=== PATIENT | male | born 1960 | race Caucasian/White ===

== ENCOUNTER 2020-06-12 10:28 | Outpatient (CLI) | payer BC ==
--- NOTE | 2020-06-12 12:21 | RAD ---
LUMBAR SPINE 3 VIEWS: Date: 06/12/2020 HISTORY: Left leg numbness for 6 months. FINDINGS: Disc osteophytosis and disc narrowing at L4-L5 and L5-S1. No abnormal translation between flexion and extension. IMPRESSION: Disc osteophytosis with disc narrowing at L4-L5 and L5-S1, without abnormal translation between flexi on and extension. POS: RRE
--- NOTE | 2020-06-12 13:10 | MRI ---
LUMBAR SPINE MRI WITHOUT IV CONTRAST: HISTORY: Lumbar radiculopathy, left leg numbness for 6 months. COMPARISON: 06/27/2009. FINDINGS: Conus medullaris region is unremarkable. Generalized disk desiccation changes and ligament and facet hypertrophic changes. Several bony hemangiomas. T12-L1 disk: Unremarkable. L1-L2 disk: Mild bilateral recess stenosis. L2-L3 disk: Mild bilateral recess stenosis. Small cyst in the left ligamentum flavum adjacent to th e facet joint. L3-L4 disk: Very severe canal, lateral recess, and moderate bilateral foraminal stenosis. This is a considerable change when compared to the prior study. L4-L5 disk: Diffuse disk-osteophytosis with very severe central canal and lateral recess and moderat e bilateral foraminal stenosis with associated annular fissure. L5-S1 disk: Mild central canal and lateral recess stenosis and foraminal stenosis with associated an nular fissure. IMPRESSION: Multilevel variable severity canal, lateral recess, and foraminal stenosis, most marked at L3-L4 and L4-L5 with very considerable worsening of the stenosis at L3-L4 from prior study. POS: RRE
== END 2020-06-12 10:29 | disposition home or self-care (01) ==
LOC: TBSIIMAG 10:28
PROVIDERS: ATTEND Neurological Surgery
DX: M54.16 Radiculopathy, lumbar region (principal); M54.30 Sciatica, unspecified side; M48.061 Spinal stenosis, lumbar region without neurogenic claudication
CPT/HCPCS: 72100; 72148

== ENCOUNTER 2020-10-09 06:55 | Outpatient (CLI) | payer BC ==
[2020-10-09 14:27] LABS: Hemoglobin 14.2 g/dL (14.0-18.0); Mean Corpuscular HGB CONC 34.1 G/DL (32.0-36.0); Mean Corpuscular Hemoglobin 31.1 PG (27.0-33.0); Mean Corpuscular Volume 91.2 fl (80.0-100.0); Platelet Count 254 10x3/uL (130-400); RBC Distribution Width 12.7 % (11.5-14.5); Red Blood Cell (RBC) Count 4.56 10x6/uL (4.40-5.80); White Blood Cell (WBC) Count 6.5 10x3/uL (4.5-11.0)
[2020-10-09 14:53] LABS: PTT 28.2 sec (22.0-33.0); Prothrombin Time 10.3 sec (9.5-12.1)
[2020-10-10 05:28] LABS: SARS-CoV-2 PCR by NAA Not Detected (NotDetected)
== END 2020-10-09 06:56 | disposition home or self-care (01) ==
LOC: LABBT 06:55
PROVIDERS: ATTEND Neurological Surgery
DX: Z01.812 Encounter for preprocedural laboratory examination (principal); Z20.822 Contact with and (suspected) exposure to COVID-19; M48.062 Spinal stenosis, lumbar region with neurogenic claudication
CPT/HCPCS: 85027; 85610; 85730; 87635; U0003; U0005

== ENCOUNTER 2020-10-12 05:41 | Day surgery (SDC) | payer BC ==
[2020-10-09 14:11] VITALS: BMI 27.1
--- NOTE | 2020-10-10 18:03 | HP ---
REASON FOR H AND P: Surgery on 10/12/2020, case number is [id number]. HISTORY OF PRESENT ILLNESS: Mr. Macias is a 60 yo male with lower back and bilateral left greater than right pain for the past 2 to 3 years. 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 Last year, his left leg pain has become worse compared to his right leg. Pain and paresthesias radiate into his bilateral (L>R), right gluteal muscle and posterior thigh, not passing his knee. He could walk about 200 to 300 yards before he has to sit down to alleviate some of his pain. He denies bladder or bowel dysfunction. REVIEW OF SYSTEMS: CONSTITUTIONAL: Denies fever or chills. ENT: Denies change in vision or hearing. CARDIAC: Denies chest pain, shortness of breath, or diaphoresis. PULMONARY: Denies shortness of breath, cough, or hemoptysis. GI: Denies fecal incontinence, abdominal pain, nausea, vomiting, diarrhea, or change in stool formation and consistency. : Denies urinary incontinence, trouble with urination, frequency of urination, bloody urine. SKIN: Denies skin rash, bruising, bleeding, skin masses. MUSCULOSKELETAL: As per history of present illness. NEUROLOGIC: As per history of present illness. PSYCHOLOGIC: Denies anxiety, depression, or behavior changes. MEDICAL HISTORY: None. SURGICAL HISTORY: Denies past surgical history. HOSPITALIZATION: Denies past hospitalizations. FAMILY HISTORY: Father , diagnosed with diabetes, hypertension, heart disease, and stroke. Mother , diagnosed none. Children alive. SOCIAL HISTORY: Former smoker. Denies alcohol or illicit drug use. MEDICATIONS: None. ALLERGIES: NO KNOWN DRUG ALLERGIES. PHYSICAL EXAMINATION: VITAL SIGNS: Weight 205, height 6 feet 0 inches, BMI 27.80. HEENT: Pupils are equal. Extraocular movements are intact. NECK: Soft and supple. No masses are noted. Range of motion is intact and nonpainful. NEUROLOGIC: Awake, alert, oriented x3. Memory, attention, and fund of knowledge are normal. Cranial nerves are grossly intact. Gait and station are normal. Motor exam, there is normal strength in the iliopsoas, quadriceps, hamstrings, anterior tib, EHL, gastrocnemius, and toe flexors. Sensory exam, there is no dermatomal sensory loss. IMAGING STUDIES: MRI of L-spine; L3-L4 and L4-L5 severe stenosis with left lateral recess L5-S1. X-rays of the L-spine, flexion and extension stable. ASSESSMENT: Lumbar stenosis with neurogenic claudication. PLAN: 1. Laminectomy of L3 through S1. 2. Preoperative labs; CBC, PT, PTT, and INR, COVID-19 testing. 3. Anesthesia clearance. INFORMED CONSENT: We discussed the indications, risks, benefits, alternatives, and expected results from surgery. The risks discussed included, but were not limited to, bleeding, infection, CSF leak, nerve damage, weakness, incontinence, cauda equina injury, arachnoiditis, paralysis, ventilator dependency, wheelchair dependency, loss of vision, cardiopulmonary complications of anesthesia, or . Long-term complications discussed included, but were not limited to spinal instability and future surgery. He understands the risks and is willing to proceed. Job ID: [id number] MTDD
[2020-10-12] MEDS ORDERED: EPINEPHrine 1 MG/ML AMP ONE (05:56)
[2020-10-12] MEDS ORDERED: Thrombin 5000 UNITS/5 ML VIAL ONE (05:56)
[2020-10-12] MEDS ORDERED: Bupivacaine PF 0.5% 30 ML VIAL ONE (05:56)
[2020-10-12] MEDS ORDERED: SUGAMMADEX SODIUM 500 MG/5 ML VIAL ONE (06:27)
[2020-10-12] MEDS ORDERED: Fentanyl 100 MCG/2 ML VIAL ONE ×3 (06:27→10:46)
[2020-10-12] MEDS ORDERED: Famotidine/PF 20 mg/2ml Vial ONE (06:27)
[2020-10-12] MEDS ORDERED: Midazolam HCl 2 mg/2 ml Vial ONE (06:53)
[2020-10-12] MEDS ORDERED: ePHEDrine 50 MG/ML VIAL ONE (10:00)
[2020-10-12] MEDS ORDERED: Metoclopramide HCl 10 MG/2 ML VIAL ONE (10:00)
[2020-10-12] MEDS ORDERED: PROPOFOL 200 MG/20 ML VIAL ONE (10:00)
[2020-10-12] MEDS ORDERED: PHENYLEPHRINE-NS 100 MCG/ML 10 ML SYRINGE ONE (10:00)
[2020-10-12] MEDS ORDERED: Ondansetron PF 4 MG/2 ML Vial ONE (10:00)
[2020-10-12] MEDS ORDERED: Lidocaine 1% PF 5 ML VIAL ONE (10:00)
[2020-10-12] MEDS ORDERED: Dexamethasone 20 MG/5 ML VIAL ONE (10:00)
[2020-10-12] MEDS ORDERED: Ketorolac Tromethamine 30 MG/ML VIAL ONE (10:00)
[2020-10-12] MEDS ORDERED: Rocuronium Bromide 10 MG/ML (10ML VIAL) ONE (10:00)
[2020-10-12] MEDS ORDERED: Tamsulosin HCl 0.4 MG CAP ONE (10:50)
--- NOTE | 2020-10-12 11:20 | OP ---
DATE OF PROCEDURE: 10/12/2020 SOAP MIXER: Christopher Walker PA-C PREOPERATIVE INDICATION: Treat pain and prevent neurological deterioration. PREOPERATIVE DIAGNOSIS: Severe multilevel lumbar stenosis with neurogenic claudication. POSTOPERATIVE DIAGNOSIS: Severe multilevel lumbar stenosis with neurogenic claudication. OPERATIVE PROCEDURE: Decompressive laminectomy; medial facetectomy; foraminotomy at L3-4, 4-5, and L5-S1; repair of dura from needle puncture; operating microscope. PREOPERATIVE MEDICATIONS: Ancef 2 g IV. DRAIN NUMBER: Zero. DRAIN TYPE: None. DESCRIPTION OF PROCEDURE: The patient was brought to the operating room. General endotracheal anesthesia was induced. The patient was carefully positioned prone on the operating table with his chest and hips supported by gel-filled chest rolls. A lateral fluoro radiograph was used to plan our incision. The lumbar skin was sterilely prepped and draped. We opened a midline incision with a 10-blade knife to control bleeding with bipolar and monopolar cautery. We used monopolar cautery to dissect through subcutaneous tissues to the thoracodorsal fascia. We incised the fascia in midline and reflected the paraspinal muscles off the spinous process and the lamina of L3, L4, L5 and the top of the sacrum. The self-retaining retractors placed and the lateral fluoro radiograph confirmed the levels upon which we were operating. We then removed the spinous processes with an Adson rongeur and used a Leksell rongeur to thin the lamina. Kerrison rongeurs were used to fashion our laminectomy from the pedicles of L3 past the pedicles of S1. We had to perform medial facetectomies on both sides to decompress the lateral recesses and foraminotomies over the exiting nerve roots. Our decompression was secured. We inspected the dura. There was a small pinhole at the L3-4 level slightly left to the midline. The operating microscope was brought in the field. Under microscopic magnification and using microsurgical techniques, we explored the dura. A Valsalva was administered and a tiny bit of CSF egress was noted. The hole was the size of a needle as well as the shape of an epidural injection needle. Using 9-0 Prolene, we placed a single suture and tightened the dura. Valsalva was administered and there was no CSF egress. We irrigated copiously bacitracin irrigation and then reinforced our dural closure with DuraSeal tissue sealant. We infused local anesthetic in the paraspinal muscles. We treated the wound with vancomycin powder and we closed in anatomical layers. This was a clean case, no contamination. Job ID: [id number]
== END 2020-10-12 17:14 | disposition home or self-care (01) ==
LOC: SDC 05:41
PROVIDERS: ATTEND Neurological Surgery
PROC: 01NB0ZZ Release Lumbar Nerve, Open Approach (ICD-10-PCS; principal; 2020-10-12)
DX: M48.062 Spinal stenosis, lumbar region with neurogenic claudication (principal)
CPT/HCPCS: 76000; J0171; J0690; J1100; J1885; J2250; J2405; J2704; J2765; J3010; J3370; J3490; S0020; S0028